=== PATIENT | female | born 1945 ===

== ENCOUNTER 2019-11-04 05:50 | Day surgery (SDC) | payer OTHER ==
[~2019-11-04 05:50] MED LIST: COZAAR100 MG PO; CRESTOR20 MG PO; METFORM PO; METOPRO PO
[2019-11-04] MEDS ORDERED: NEURONTIN300 MG PO (12:11)
[2019-11-04] MEDS ORDERED: PERCOCET 5-3251 EACH PO (12:11)
[2019-11-04] MEDS ORDERED: RECTICARE30 GM TOP (12:11)
== END 2019-11-04 16:00 | disposition home or self-care (01) ==
LOC: CIR.AMB 05:50 → ADM 11:00 → CIR.AMB 16:00
PROVIDERS: ATTEND Surgery
DX: K60.1 Chronic anal fissure (principal); Z20.828 Contact with and (suspected) exposure to other viral communicable diseases